=== PATIENT | male | born 2000 | race Caucasian/White ===

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

== ENCOUNTER 2025-01-16 02:04 | Emergency (ER) | payer SELFPAY ==
[~2025-01-16] VITALS: Ht 182.9 cm; Wt 113.9 kg
[~2025-01-16 02:04] MED LIST: OLAN15TA69 PO; VENL150C43 PO
[2025-01-16 02:10] VITALS: BP 170/90; TEMP 98.1; O2SAT 98
== END 2025-01-16 06:53 | disposition left against medical advice (07) ==
LOC: M ED 02:04
DX: Z53.21 Procedure and treatment not carried out due to patient leaving prior to being seen by health care provider (principal)